=== PATIENT | female | born 2000 | race Caucasian/White ===

== ENCOUNTER 2022-06-09 22:21 | Emergency (ER) | payer OTHER ==
[2022-06-09 23:18] LABS: BASOPHIL 0.4 % (0-2); EOSINOPHIL 0.7 % (0-5); HCT 34.7 % (37.0-47.0); HGB 10.9 g/dl (12.5-16.0); LYMPHOCYTE 22.7 % (15-48); MCH 24.7 pg (25.0-31.0); MCHC 31.4 g/dL (32.0-36.0); MCV 78.7 fL (78.0-100.0); MONOCYTE 8.6 % (0-12); NEUTROPHIL 67.4 % (41-80); NRBC 0; PLT 265 K/uL (150-400); RBC 4.41 M/uL (4.20-5.40); RDW 15.4 % (11.5-14.0); WBC 8.3 K/uL (4.0-10.5)
[2022-06-09 23:43] LABS: ALBUMIN 4.2 g/dL (3.4-5.0); BILIRUBIN - TOTAL 0.2 mg/dL (0.2-1.0); CREATININE 0.61 mg/dL (0.51-0.95); POTASSIUM 3.5 mmol/L (3.5-5.1); TOTAL PROTEIN 8.2 g/dL (6.4-8.2)
[2022-06-09 23:54] LABS: BILIRUBIN NEGATIVE (NEGATIVE); BLOOD NEGATIVE Ery/uL (NEGATIVE); CLARITY CLEAR (CLEAR); COLOR YELLOW (YELLOW); GLUCOSE (U) NORMAL (NORMAL); LEUKOCYTES NEGATIVE Leu/uL (NEGATIVE); NITRITE NEGATIVE (NEGATIVE); PROTEIN NEGATIVE (NEGATIVE); SPECIFIC GRAVITY >=1.030 (1.001-1.030); UROBILINOGEN 0.2 mg/dL (0.2-1.0)
== END 2022-06-10 00:50 | disposition home or self-care (01) ==
LOC: FER 22:21
PROVIDERS: Internal Medicine
DX: O46.91 Antepartum hemorrhage, unspecified, first trimester (principal); Z88.2 Allergy status to sulfonamides; Z3A.01 Less than 8 weeks gestation of pregnancy
CPT/HCPCS: 36415; 80053; 81003; 84702; 85025; 86900; 86901; 99284